=== PATIENT | female | born 1960 | race Caucasian/White ===

== ENCOUNTER → 2016-07-19 | Day surgery (SDC) | payer OTHER ==
--- NOTE | 2016-07-19 15:59 | OP ---
DATE OF OPERATION: 07/19/2016 PREOPERATIVE DIAGNOSIS: Left breast mass 2 o'clock 6 cm from the nipple. POSTOPERATIVE DIAGNOSIS: Left breast mass 2 o'clock 6 cm from the nipple. PROCEDURE: Left ultrasound-guided core biopsy with clip placement. ANESTHESIA: Local. ATTENDING SURGEON: Jimmy Esparza MD ESTIMATED BLOOD LOSS: Minimal. COMPLICATIONS: None. DESCRIPTION OF PROCEDURE: The patient was made aware of the risks and benefits of the procedure and consented. She had been off her Coumadin for the last week. She was placed in the supine position. Under sterile conditions with 1% lidocaine for local anesthesia, a small devyn was made in the skin. Using a 13-gauge suction biopsy device with inferolateral approach under ultrasound guidance, 6 cores were obtained and submitted to Pathology. Likewise, under ultrasound guidance, a bowtie clip was placed at the biopsy region well tolerated by patient with minimal bleeding. Steri-Strips and a sterile bandage was applied. The patient went for postprocedure mammogram. We will contact her with results. JIMMY RHODES M.D. [id number]
--- NOTE | 2016-07-22 16:20 | PATH ---
Surgical Pathology Report Patient Name: GIANNI MITCHELL [facility]. Rec. #: [id number] /Age/Gender: 1960 (Age: 55) / F Account: [id number] Location: [facility] Taken: 07/19/2016 Received: 07/19/2016 Reported: 07/22/2016 Physicians: Jimmy Taylor M.D. Specimen(s) Received LEFT BREAST CORE BIOPSY 2:00 6CM FN Clinical History Nonpalpable lesion Ultrasound findings: suspicious Final Diagnosis BREAST, LEFT, 2:00, 6 CM FN, CORE BIOPSY: BENIGN BREAST TISSUE SHOWING STROMAL FIBROSIS. Electronically Signed Roxann Forrest M.D. Gross Description Received in formalin, labeled "left breast 2:00, 6cmfn," are 7 harding-yellow, cylindrical portions of fibroadipose tissue ranging from 0.5-2.0 cm. in length and averaging 0.3 cm. in diameter. The specimen is submitted in toto in one cassette. Time to formalin fixation: Not given Total formalin fixation time: Approximately 8 hours /07/19/2016/07/19/2016
== END | disposition home or self-care (01) ==
LOC: FRADUS-SUR 12:37
PROVIDERS: ATTEND Surgery Surgical Oncology
PROC: 0HBU3ZX Excision of Left Breast, Percutaneous Approach, Diagnostic (ICD-10-PCS; principal; 2016-07-19)
DX: N63 Unspecified lump in breast (principal); N60.32 Fibrosclerosis of left breast
CPT/HCPCS: 19083; 87899; 88305-TC; A4648; G0206-TC